=== PATIENT | female | born 1960 | race Caucasian/White ===

== ENCOUNTER 2016-10-08 06:00 | Day surgery (SDC) | payer BC ==
[~2016-10-08] VITALS: Ht 165.1 cm; Wt 57.6 kg
[2016-10-08 06:37] VITALS: O2SAT 99
[2016-10-08] MEDS ORDERED: LR 1,000 ML IV SCH (08:02)
[2016-10-08] MEDS ORDERED: METOCLOPRAMIDE HCL 10 MG/2 ML VIAL IVP PRN (08:15)
[2016-10-08] MEDS ORDERED: MORPHINE 2 MG/ML INJ. SYRINGE IVP PRN ×2 (08:15)
[2016-10-08] MEDS: MORPHINE 2 MG/ML INJ. SYRINGE IVP PRN ×2 (08:50→09:00)
[2016-10-08] MEDS ORDERED: MORPHINE 4 MG/ML INJ. SYRINGE ONE (09:01)
[2016-10-08 09:31] VITALS: BP 119/63; PULSE 74; RESP 14
[2016-10-08] MEDS ORDERED: ROCURONIUM BROMIDE 10 MG/ML (ZEMURON) ONE (14:00)
[2016-10-08] MEDS ORDERED: ATROPINE SULFATE 0.4 MG/ML VIAL ONE (14:00)
[2016-10-08] MEDS ORDERED: ONDANSETRON HCL 4 MG/2 ML VIAL ONE (14:00)
[2016-10-08] MEDS ORDERED: LR 1,000 ML IV.SOLN IV ONE (14:00)
[2016-10-08] MEDS ORDERED: DEXAMETHASONE SOD PHOSPHATE 4 MG/ML VIAL ONE (14:00)
[2016-10-08] MEDS ORDERED: SEVOFLURANE 15 MIN GAS INH ONE (14:00)
[2016-10-08] MEDS ORDERED: fentaNYL CITRATE 250 MCG/5 ML AMP ONE (14:00)
[2016-10-08] MEDS ORDERED: NS IRRIG SOLN 1000 ML IR ONE (14:00)
[2016-10-08] MEDS ORDERED: BACITRACIN ZINC 15 GM TOPICAL OINTMENT TP ONE (14:00)
[2016-10-08] MEDS ORDERED: WATER FOR IRRIGATION,STERILE 1,000 ML IRRIG.SOLN IR ONE (14:00)
[2016-10-08] MEDS ORDERED: MUPIROCIN 2% TOPICAL OINTMENT 22 GM TP ONE (14:00)
[2016-10-08] MEDS ORDERED: MIDAZOLAM HCL 5 MG/5 ML VIAL ONE (14:00)
[2016-10-08] MEDS ORDERED: LIDOCAINE/EPI 1% 1:100000 20 ML VIAL INJ ONE (14:00)
[2016-10-08] MEDS ORDERED: PROPOFOL 200MG/ 20ML VIAL (DIPRIVAN) IV ONE (14:00)
== END 2016-10-08 11:30 | disposition home or self-care (01) ==
LOC: SDS 06:00
PROVIDERS: ATTEND Otolaryngology
DX: J32.8 Other chronic sinusitis (principal); J34.2 Deviated nasal septum; J34.89 Other specified disorders of nose and nasal sinuses; M19.90 Unspecified osteoarthritis, unspecified site; G62.9 Polyneuropathy, unspecified
CPT/HCPCS: 30140; 30520; 31256; 88305; 88311; J0461; J1100; J2250; J2270; J2405; J2704; J3010; J7120